=== PATIENT | female | born 2000 | race Caucasian/White ===

== ENCOUNTER → 2020-12-24 | Outpatient (CLI) | payer OTHER | LOC: MRI 15:06 | PROVIDERS: ATTEND Orthopaedic Surgery Foot and Ankle Surgery | DX: M25.371 Other instability, right ankle (principal); R60.0 Localized edema ==

== ENCOUNTER 2021-08-10 12:11 | Emergency (ER) | payer OTHER ==
[~2021-08-10] VITALS: Ht 165.1 cm; Wt 113.4 kg
[2021-08-10 12:11] VITALS: BP 149/72
[2021-08-10 14:41] LABS: ABSOLUTE NEUTROPHILS 4.1 thou/uL (1.4-8.2); BASOPHILS 0.3 % (0.0-2.0); HEMATOCRIT 37.4 % (37.0-47.0); HEMOGLOBIN 12.1 gm/dL (12.0-15.0); LYMPHOCYTES 35.7 % (24.0-44.0); MCHC 32.5 g/dL (28.0-37.0); MONOCYTES 6.3 % (1.0-8.0); PLATELET COUNT 256 thou/uL (150-400); POLYS 55.7 % (36.0-66.0); RBC 4.67 mil/uL (4.20-5.00); RDW 14.3 % (10.5-14.5); WBC 7.4 thou/uL (4.0-11.0)
[2021-08-10 15:06] LABS: ALBUMIN 3.6 g/dL (3.4-5.0); CALCIUM 9.1 mg/dL (8.5-10.1); CREATININE 0.7 mg/dL (0.6-1.0); POTASSIUM 3.9 mmol/L (3.5-5.1); TOTAL BILIRUBIN 0.2 mg/dL (0.2-1.0); TOTAL PROTEIN 7.4 g/dL (6.4-8.2)
[2021-08-10 15:10] LABS: URINE BILIRUBIN NEGATIVE (Negative); URINE BLOOD 3+ (Negative); URINE CLARITY CLOUDY; URINE COLOR YELLOW; URINE GLUCOSE-RANDOM* NEGATIVE (Negative); URINE KETONES NEGATIVE (Negative); URINE NITRITE-REFLEX NEGATIVE (Negative); URINE PROTEIN (DIPSTICK) TRACE (Negative); URINE SPECIFIC GRAVITY 1.025 (1.005-1.035); URINE UROBILINOGEN 0.2 E.U./dl (0.2-1.0)
[2021-08-10 15:21] LABS: URINE LEUKOCYTES-REFLEX 1+ (Negative)
[2021-08-10 15:31] LABS: SQUAMOUS 0-3 Few /LPF (0-3)
[2021-08-10 15:32] LABS: BACTERIA-REFLEX 1-9 Few /HPF (None Seen); CASTS None Seen /LPF (None Seen); CRYSTALS None Seen /LPF (None Seen); URINE RBC >20 Many /HPF (NONE SEEN); URINE WBC-REFLEX 6-15 Few /HPF (0-5)
[2021-08-10] MEDS ORDERED: BACTRIM DS TAB1 EACH PO (16:20)
[2021-08-10] MEDS ORDERED: DOXYCYCLINE 10100 M2 PO (16:20)
[2021-08-10] MEDS ORDERED: DIFLUCAN150 M1 PO (16:20)
== END 2021-08-10 16:34 | disposition home or self-care (01) ==
LOC: ER 12:11
PROVIDERS: Nurse Practitioner
DX: A64 Unspecified sexually transmitted disease (principal); N39.0 Urinary tract infection, site not specified; N89.8 Other specified noninflammatory disorders of vagina